=== PATIENT | female | born 1980 | race Caucasian/White ===

== ENCOUNTER → 2017-10-09 08:21 | Outpatient (REF) | payer MEDICAID, SELFPAY ==
[2017-10-09 13:48] LABS: Amphetamine/Metha Screen,Urine Negative ng/mL (<1000); Barbiturates Screen,Urine Negative ng/mL (<200); Benzodiazepines Screen,Urine Negative ng/mL (200); Cannabinoid Screen,Urine Negative ng/mL (<50); Cocaine Screen,Urine Positive ng/g (<300); Methadone Screen,Urine Positive ng/mL (<300); Opiate Screen,Urine Negative ng/mL (<300); Phencyclidine Screen,Urine Negative ng/mL (<25)
[2017-10-09 14:51] LABS: Hemoglobin A1C 5.9 % (0.0-7.0)
== END ==
LOC: LAB 08:21
PROVIDERS: Visit Provider Nurse Practitioner Family
DX: E11.9 Type 2 diabetes mellitus without complications (principal); Z79.899 Other long term (current) drug therapy
CPT/HCPCS: 80305; 83036

== ENCOUNTER → 2018-01-02 16:34 | Outpatient (REF) | payer MEDICAID, SELFPAY ==
[2018-01-02 19:10] LABS: Basophils # 0.1 K/mm3 (0-0.2); Basophils % 0.8 % (0.1-2.0); Eosinophils # 0.3 K/mm3 (0.0-0.4); Eosinophils % 2.4 % (0.1-12.0); Hemoglobin 12.4 g/dL (12.2-16.2); Lymphocytes # 3.9 K/mm3 (0.7-4.5); Mean Corpuscular HGB Conc 31.8 g/dL (31.8-35.4); Mean Corpuscular Hemoglobin 26.7 pg (27.0-31.2); Mean Corpuscular Volume 83.8 fl (81-99); Mean Platelet Volume 8.8 fl (7.4-10.4); Monocytes # 0.6 K/mm3 (0.1-1.0); Monocytes % 5.4 % (1.7-9.3); Neutrophils # 6.6 K/mm3 (1.8-7.8); Neutrophils % 57.5 % (37.0-80.0); Platelet Count 403 K/mm3 (142-424); Red Blood Count 4.65 M/mm3 (4.20-5.40); Red Cell Distribution Width 14.5 % (11.5-17.5); White Blood Count 11.5 K/mm3 (4.8-10.8)
[2018-01-02 19:56] LABS: Alanine Aminotransferase 16 U/L (12-78); Albumin Level 3.3 gm/dL (3.4-5.0); Albumin/Globulin Ratio 0.9 (1.1-1.8); Alkaline Phosphatase 73 U/L (46-116); Anion Gap 16.7 mEq/L (5-15); Aspartate Amino Transferase 19 U/L (15-37); Bilirubin,Total 0.1 mg/dL (0.2-1.0); Blood Urea Nitrogen 12 mg/dL (7-18); Calcium 9.4 mg/dL (8.5-10.1); Carbon Dioxide 22 mmol/L (21.0-32.0); Chloride 104 mmol/L (98-107); Chol/HDL Ratio 3.8 (1-3.5); Cholesterol 204 mg/dL (140-200); Creatinine,Serum 0.89 mg/dL (0.55-1.02); Estimated Glomerular Filt Rate 71 ml/min (>60); GFR (African American) 86 ML/MIN (>60); Globulin 3.8 gm/dl (1.3-3.2); Glucose 127 mg/dL (74-106); HDL Cholesterol 53 mg/dL (29-89); LDL Cholesterol 120 mg/dL (0-130); Potassium 4.7 mmoL/L (3.5-5.1); Sodium 138 mmol/L (136-145); T4 (Thyroxine) 8.1 ug/dl (4.7-13.3); Thyroid Stimulating Hormone 2.25 uIU/ml (0.358-3.740); Total Protein,Serum 7.1 gm/dL (6.4-8.2); Triglycerides 153 mg/dL (30-200); VLDL Cholesterol 31 mg/dL (0-40)
[2018-01-02 20:11] LABS: Hemoglobin A1C 5.8 % (0.0-7.0)
[2018-01-04 12:58] LABS: Vitamin D 25 Hydroxy 18.9 ng/mL (30.0-100.0)
== END ==
LOC: LAB 16:34
PROVIDERS: Visit Provider Emergency Medicine
DX: E11.9 Type 2 diabetes mellitus without complications (principal); E78.5 Hyperlipidemia, unspecified
CPT/HCPCS: 80053; 80061; 82652; 83036; 84436; 84443; 85025

== ENCOUNTER → 2018-03-19 12:03 | Outpatient (REF) | payer MEDICAID, SELFPAY ==
[2018-03-19 13:55] LABS: Basophils # 0.1 K/mm3 (0-0.2); Basophils % 0.8 % (0.1-2.0); Eosinophils # 0.3 K/mm3 (0.0-0.4); Eosinophils % 2.9 % (0.1-12.0); Hematocrit 44.8 % (37.0-47.0); Hemoglobin 13.8 g/dL (12.2-16.2); Lymphocytes # 3.5 K/mm3 (0.7-4.5); Lymphocytes % 38.2 K/mm3 (10-50); Mean Corpuscular HGB Conc 30.9 g/dL (31.8-35.4); Mean Corpuscular Volume 84.3 fl (81-99); Mean Platelet Volume 8.9 fl (7.4-10.4); Monocytes # 0.5 K/mm3 (0.1-1.0); Monocytes % 5.4 % (1.7-9.3); Neutrophils # 4.9 K/mm3 (1.8-7.8); Neutrophils % 52.7 % (37.0-80.0); Platelet Count 422 K/mm3 (142-424); Red Blood Count 5.31 M/mm3 (4.20-5.40); Red Cell Distribution Width 14.7 % (11.5-17.5); White Blood Count 9.2 K/mm3 (4.8-10.8)
[2018-03-19 14:11] LABS: Hemoglobin A1C 5.8 % (0.0-7.0)
[2018-03-19 14:13] LABS: Alanine Aminotransferase 13 U/L (12-78); Albumin Level 3.3 gm/dL (3.4-5.0); Albumin/Globulin Ratio 0.8 (1.1-1.8); Alkaline Phosphatase 75 U/L (46-116); Anion Gap 12.3 mEq/L (5-15); Aspartate Amino Transferase 13 U/L (15-37); Bilirubin,Total 0.3 mg/dL (0.2-1.0); Blood Urea Nitrogen 9 mg/dL (7-18); Calcium 9.1 mg/dL (8.5-10.1); Carbon Dioxide 24 mmol/L (21.0-32.0); Chloride 106 mmol/L (98-107); Chol/HDL Ratio 3.4 (1-3.5); Cholesterol 198 mg/dL (140-200); Creatinine,Serum 0.87 mg/dL (0.55-1.02); Estimated Glomerular Filt Rate 72 ml/min (>60); Free T4 (Free Thyroxine) 0.91 ng/dl (0.76-1.46); GFR (African American) 88 ML/MIN (>60); Glucose 138 mg/dL (74-106); HDL Cholesterol 59 mg/dL (29-89); LDL Cholesterol 117 mg/dL (0-130); Potassium 4.3 mmoL/L (3.5-5.1); Sodium 138 mmol/L (136-145); Total Protein,Serum 7.3 gm/dL (6.4-8.2); Triglycerides 108 mg/dL (30-200); VLDL Cholesterol 22 mg/dL (0-40)
[2018-03-21 06:04] LABS: Vitamin D 25 Hydroxy 28.4 ng/mL (30.0-100.0)
== END ==
LOC: LAB 12:03
PROVIDERS: Visit Provider Emergency Medicine
DX: E11.9 Type 2 diabetes mellitus without complications (principal)
CPT/HCPCS: 80053; 80061; 82652; 83036; 84439; 84443; 85025

== ENCOUNTER → 2018-06-27 09:23 | Outpatient (REF) | payer MEDICAID, SELFPAY ==
[2018-06-27 15:00] LABS: Amphetamine/Metha Screen,Urine Negative ng/mL (<1000); Barbiturates Screen,Urine Negative ng/mL (<200); Benzodiazepines Screen,Urine Negative ng/mL (<200); Cannabinoid Screen,Urine Negative ng/mL (<50); Cocaine Screen,Urine Negative ng/mL (<300); Methadone Screen,Urine Negative ng/mL (<300); Opiate Screen,Urine Negative ng/mL (<300); Phencyclidine Screen,Urine Negative ng/mL (<25)
== END ==
LOC: LAB 09:23
PROVIDERS: PCP Nurse Practitioner Family; Visit Provider Nurse Practitioner Family
DX: Z79.899 Other long term (current) drug therapy (principal)
CPT/HCPCS: 80305

== ENCOUNTER → 2018-09-20 13:58 | Outpatient (CLI) | payer MEDICAID, SELFPAY ==
[2018-09-23 09:25] LABS: Basophils # 0.1 K/mm3 (0-0.2); Basophils % 1.1 % (0.1-2.0); Eosinophils # 0.2 K/mm3 (0.0-0.4); Eosinophils % 2.1 % (0.1-12.0); Hemoglobin 13.2 g/dL (12.2-16.2); Lymphocytes # 3.3 K/mm3 (0.7-4.5); Mean Corpuscular HGB Conc 29.4 g/dL (31.8-35.4); Mean Corpuscular Hemoglobin 26.3 pg (27.0-31.2); Mean Corpuscular Volume 89.6 fl (81-99); Mean Platelet Volume 10.7 fl (7.4-10.4); Monocytes # 0.6 K/mm3 (0.1-1.0); Monocytes % 5.4 % (1.7-9.3); Neutrophils # 6.7 K/mm3 (1.8-7.8); Neutrophils % 61.4 % (37.0-80.0); Platelet Count 377 K/mm3 (142-424); Red Blood Count 5.02 M/mm3 (4.20-5.40); Red Cell Distribution Width 15.2 % (11.5-17.5); White Blood Count 10.9 K/mm3 (4.8-10.8)
[2018-09-23 09:52] LABS: Alanine Aminotransferase 25 U/L (12-78); Albumin Level 3.5 gm/dL (3.4-5.0); Albumin/Globulin Ratio 0.9 (1.1-1.8); Alkaline Phosphatase 87 U/L (46-116); Anion Gap 15.3 mEq/L (5-15); Aspartate Amino Transferase 19 U/L (15-37); Bilirubin,Total 0.3 mg/dL (0.2-1.0); Blood Urea Nitrogen 9 mg/dL (7-18); Calcium 9.1 mg/dL (8.5-10.1); Carbon Dioxide 24 mmol/L (21.0-32.0); Chloride 102 mmol/L (98-107); Chol/HDL Ratio 3.9 (1-3.5); Cholesterol 198 mg/dL (140-200); Creatinine,Serum 0.82 mg/dL (0.55-1.02); Estimated Glomerular Filt Rate 78 ml/min (>60); GFR (African American) 94 ML/MIN (>60); Glucose 105 mg/dL (74-106); HDL Cholesterol 51 mg/dL (29-89); LDL Cholesterol 126 mg/dL (0-130); Potassium 4.3 mmoL/L (3.5-5.1); Sodium 137 mmol/L (136-145); T4 (Thyroxine) 7.5 ug/dl (4.7-13.3); Thyroid Stimulating Hormone 1.34 uIU/ml (0.358-3.740); Total Protein,Serum 7.5 gm/dL (6.4-8.2); Triglycerides 107 mg/dL (30-200); VLDL Cholesterol 21 mg/dL (0-40)
== END ==
PROVIDERS: Visit Provider Emergency Medicine
DX: E11.40 Type 2 diabetes mellitus with diabetic neuropathy, unspecified (principal)
CPT/HCPCS: 80053; 80061; 83036; 84436; 84443; 85025

== ENCOUNTER → 2019-01-13 13:49 | Outpatient (CLI) | payer MEDICAID, SELFPAY ==
[2019-01-13 14:04] LABS: Basophils # 0.1 K/mm3 (0-0.2); Basophils % 0.6 % (0.1-2.0); Eosinophils # 0.2 K/mm3 (0.0-0.4); Eosinophils % 1.9 % (0.1-12.0); Hematocrit 38.7 % (37.0-47.0); Hemoglobin 12.8 g/dL (12.2-16.2); Lymphocytes % 32.5 % (10-50); Mean Corpuscular HGB Conc 33.1 g/dL (31.8-35.4); Mean Corpuscular Hemoglobin 26.7 pg (27.0-31.2); Mean Corpuscular Volume 80.4 fl (81-99); Mean Platelet Volume 7.8 fl (7.4-10.4); Monocytes # 0.5 K/mm3 (0.1-1.0); Monocytes % 4.2 % (1.7-9.3); Neutrophils # 7.4 K/mm3 (1.8-7.8); Neutrophils % 60.7 % (37.0-80.0); Platelet Count 361 K/mm3 (142-424); Red Blood Count 4.81 M/mm3 (4.20-5.40); Red Cell Distribution Width 13.7 % (11.5-17.5); White Blood Count 12.2 K/mm3 (4.8-10.8)
[2019-01-13 15:42] LABS: Anion Gap 14.6 mEq/L (5-15); Blood Urea Nitrogen 9 mg/dL (7-18); Calcium 9.1 mg/dL (8.5-10.1); Carbon Dioxide 24 mmol/L (21.0-32.0); Chloride 103 mmol/L (98-107); Estimated Glomerular Filt Rate 80 ml/min (>60); GFR (African American) 97 ML/MIN (>60); Glucose 87 mg/dL (74-106); Potassium 4.6 mmoL/L (3.5-5.1); Sodium 137 mmol/L (136-145)
== END ==
PROVIDERS: Visit Provider Surgery
DX: L72.9 Follicular cyst of the skin and subcutaneous tissue, unspecified (principal)
CPT/HCPCS: 36415; 80048; 85025

== ENCOUNTER 2019-02-07 08:12 | Day surgery (SDC) | payer MEDICAID, SELFPAY ==
[2019-02-05 15:15] VITALS: BMI 45.1
[2019-02-07 08:32] VITALS: BP 104/49; PULSE 65; RESP 18; TEMP 36.4; O2SAT 97
[2019-02-07 09:01] LABS: POC Glucose,Bedside 115 (70-110)
--- NOTE | 2019-02-07 09:41 | HMH.OPNOTE ---
Date of procedure: 02/07/19 Pre-op Diagnosis:: 1 cm cyst along right hand Post-op Diagnosis:: Same Procedure performed:: Excision of 1 cm cyst from right hand Surgeon:: Florentin Aguirre MD Semiautomatic Stitcher Operator(s):: Dino ELECTRICAL PROSPECTING ENGINEER:: Ranulfo Bazan Anesthesia: MAC, local Estimated blood loss (mL): 5 Operative findings:: Shallow lesion within dermal/subdermal tissue No definitive evidence of ganglion Operative note:: After informed consent was obtained the patient was taken the operating room and placed in the supine position. Monitored anesthesia care ensued and her right hand was prepped and draped in sterile fashion. After infiltration local anesthetic an elliptical incision was made around the lesion. The deep subcutaneous tissue was sharply dissected with scalpel and the entire lesion was excised in toto and passed off for pathologic evaluation. The lesion appeared to be essentially within the dermal/subdermal tissue with no evidence of ganglion cyst or deeper cyst. Electrocautery was utilized to achieve hemostasis and skin was closed with 4-0 nylon in an interrupted fashion. Dressings were applied and the patient was transferred to recovery in stable condition. Condition: stable Disposition: PACU Specimens:: Right hand cyst Complications:: No immediate
--- NOTE | 2019-02-07 09:44 | P.OP_ITS ---
Date of procedure: 02/07/19 Pre-op Diagnosis:: 1 cm cyst along right hand Post-op Diagnosis:: Same Procedure performed:: Excision of 1 cm cyst from right hand Surgeon:: Florentin Aguirre MD Sales Assistant Displays(s):: Dino MEDICAL DELIVERY DRIVER:: Raunlfo Bazan Anesthesia: MAC, local Estimated blood loss (mL): 5 Operative findings:: Shallow lesion within dermal/subdermal tissue No definitive evidence of ganglion Operative note:: After informed consent was obtained the patient was taken the operating room and placed in the supine position. Monitored anesthesia care ensued and her right hand was prepped and draped in sterile fashion. After infiltration local anesthetic an elliptical incision was made around the lesion. The deep subcutaneous tissue was sharply dissected with scalpel and the entire lesion was excised in toto and passed off for pathologic evaluation. The lesion appeared to be essentially within the dermal/subdermal tissue with no evidence of ganglion cyst or deeper cyst. Electrocautery was utilized to achieve hemostasis and skin was closed with 4-0 nylon in an interrupted fashion. Dressings were applied and the patient was transferred to recovery in stable condition. Condition: stable Disposition: PACU Specimens:: Right hand cyst Complications:: No immediate
[2019-02-07 09:45] VITALS: BP 92/47; PULSE 75; RESP 18; TEMP 36.2; O2SAT 95
[2019-02-07 10:00] VITALS: BP 106/59; PULSE 69; RESP 18; TEMP 36.2; O2SAT 96
[2019-02-07 10:15] VITALS: BP 109/56; PULSE 72; RESP 18; TEMP 36.2; O2SAT 95
[2019-02-07 10:30] VITALS: BP 99/56; PULSE 74; RESP 18; TEMP 36.2; O2SAT 95
--- NOTE | 2019-02-07 14:15 | HMH.ANESCL ---
[facility] Anesthesia Checklist - Structural Data Admitted From: Home Planned Operative Procedure/s: excision cyst r hand Consent for Planned Operative Procedure(s) Verified: Yes - Airway Assessment C-Spine Mobility Assessed: Yes TMJ Mobility Assessed: Yes Dentition: Edentulous - Neurological Assessment Level of Consciousness: Awake, Alert, Appropriate - Anesthesia Plan Anesthesia Risk discussed: Yes Anesthesia Plan: Verified ASA Class: II Anesthesia Type: MAC [facility] History I have reviewed the patient's past medical history: Yes Medical History: Reports:: Diabetes Mellitus Type 1, Diabetes Mellitus Type 2, Hyperlipidemia, Hypertension Denies:: Cancer, Internal Pacemaker, MRSA, Seizures *Have you ever received a pneumonia vaccine?: No *Have you received a flu vaccine this season?: Yes Other Medical History: Denies: Blood Transfusion Reaction Other Surgeries: Yes: , Hysterectomy-Total, Other. No: Pacemaker Amputation: No Fractures: No - *Social History Educational Level: Completed High School Smoking Status: Current every day smoker Tobacco Type: cigarettes # Packs/Day (cigarettes): 1 Alcohol Intake: never Substance Use Type: former substance user, crack/cocaine Last Used Substance: days (ago) *Occupational Status:: unemployed Housing: house Household Members: family *Travel in the last 8 weeks: None - Psychiatric History Expresses thoughts of harming self/others: None Suicide Plan Description: No Plan Family Hx:: Diabetes, Heart Attack, Kidney Disease
== END 2019-02-07 10:30 | disposition home or self-care (01) ==
LOC: OR 08:13
PROVIDERS: PCP Emergency Medicine; Visit Provider Surgery
PROC: (CPT 11421; principal; 2019-02-07 09:45)
DX: L72.3 Sebaceous cyst (principal)
CPT/HCPCS: 11421; 82962; 96374

== ENCOUNTER → 2019-05-15 13:58 | Outpatient (CLI) | payer MEDICAID, SELFPAY ==
--- NOTE | 2019-05-15 14:04 | XR_ITS ---
PROCEDURE: XR KNEE RT 4V CLINICAL INDICATION: knee pain COMPARISON: No exams were available for comparison FINDINGS: No fracture or dislocation. No lytic or blastic change. There is normal mineralization. Mild osteoarthritic changes are present involving the lateral compartment with slight decrease in the joint space laterally. Other findings:None. IMPRESSION: Mild osteoarthritis lateral compartment Dictated by: Andrews Rodriges MD 05/15/2019 16:43 Electronically signed by Andrews Rodriges MD in [place] 05/15/2019 16:43
== END ==
PROVIDERS: PCP Emergency Medicine; Visit Provider Orthopaedic Surgery
DX: M25.561 Pain in right knee (principal)
CPT/HCPCS: 73564

== ENCOUNTER → 2019-07-01 14:13 | Outpatient (CLI) | payer MEDICAID, SELFPAY ==
--- NOTE | 2019-07-01 14:16 | XR_ITS ---
PROCEDURE: XR HAND RT MIN 3V CLINICAL INDICATION: pain Third digit pain COMPARISON: No exams were available for comparison FINDINGS: Comminuted fracture involves the tuft of the distal phalanx of the 3rd finger without significant displacement. The joint spaces are well-preserved. No significant degenerative/arthritic changes. No erosive changes evident. Other findings:None. IMPRESSION: Nondisplaced comminuted fracture tuft distal phalanx 3rd finger Dictated by: Andrews Rodriges MD 07/01/2019 15:54 Electronically signed by Andrews Rodriges MD in [place] 07/01/2019 15:54
== END ==
PROVIDERS: PCP Emergency Medicine; Visit Provider Nurse Practitioner Family
DX: M79.641 Pain in right hand (principal)
CPT/HCPCS: 73130

== ENCOUNTER → 2019-07-21 17:13 | Outpatient (CLI) | payer OTHER, SELFPAY ==
[2019-07-21 17:50] LABS: Basophils # 0.1 K/mm3 (0-0.2); Basophils % 0.7 % (0.1-2.0); Eosinophils # 0.3 K/mm3 (0.0-0.4); Eosinophils % 2.6 % (0.1-12.0); Hematocrit 43.4 % (37.0-47.0); Hemoglobin 13.5 g/dL (12.2-16.2); Lymphocytes # 3.5 K/mm3 (0.7-4.5); Lymphocytes % 28.7 % (10-50); Mean Corpuscular HGB Conc 31.1 g/dL (31.8-35.4); Mean Corpuscular Hemoglobin 27.2 pg (27.0-31.2); Mean Corpuscular Volume 87.3 fl (81-99); Mean Platelet Volume 8.9 fl (7.4-10.4); Monocytes # 0.7 K/mm3 (0.1-1.0); Monocytes % 5.3 % (1.7-9.3); Neutrophils # 7.7 K/mm3 (1.8-7.8); Neutrophils % 62.7 % (37.0-80.0); Platelet Count 383 K/mm3 (142-424); Red Blood Count 4.97 M/mm3 (4.20-5.40); Red Cell Distribution Width 13.8 % (11.5-17.5); White Blood Count 12.3 K/mm3 (4.8-10.8)
[2019-07-21 18:34] LABS: Alanine Aminotransferase 34 U/L (12-78); Albumin Level 3.4 gm/dL (3.4-5.0); Albumin/Globulin Ratio 0.8 (1.1-1.8); Alkaline Phosphatase 73 U/L (46-116); Anion Gap 11.5 mEq/L (5-15); Aspartate Amino Transferase 28 U/L (15-37); Bilirubin,Total 0.3 mg/dL (0.2-1.0); Blood Urea Nitrogen 13 mg/dL (7-18); Calcium 9.1 mg/dL (8.5-10.1); Carbon Dioxide 27 mmol/L (21.0-32.0); Chloride 100 mmol/L (98-107); Chol/HDL Ratio 3.9 (1-3.5); Cholesterol 189 mg/dL (140-200); Estimated Glomerular Filt Rate 69 ml/min (>60); GFR (African American) 84 ML/MIN (>60); Globulin 4.1 gm/dl (1.3-3.2); Glucose 160 mg/dL (74-106); HDL Cholesterol 48 mg/dL (29-89); LDL Cholesterol 118 mg/dL (0-130); Potassium 4.5 mmoL/L (3.5-5.1); Sodium 134 mmol/L (136-145); T4 (Thyroxine) 8.4 ug/dl (4.7-13.3); Thyroid Stimulating Hormone 2.26 uIU/ml (0.358-3.740); Total Protein,Serum 7.5 gm/dL (6.4-8.2); Triglycerides 114 mg/dL (30-200); VLDL Cholesterol 23 mg/dL (0-40)
[2019-07-21 18:56] LABS: Hemoglobin A1C 6.8 % (0.0-7.0)
[2019-07-23 12:20] LABS: Vitamin D 25 Hydroxy 37.5 ng/mL (30.0-100.0)
[2019-07-23 12:21] LABS: Microalbumin, Urine <3.0 ug/mL (Not Estab.)
== END ==
PROVIDERS: Visit Provider Emergency Medicine
DX: E11.9 Type 2 diabetes mellitus without complications (principal); G62.9 Polyneuropathy, unspecified; Z79.84 Long term (current) use of oral hypoglycemic drugs
CPT/HCPCS: 80053; 80061; 82043; 82570; 82652; 83036; 84436; 84443; 85025

== ENCOUNTER → 2020-02-16 14:34 | Outpatient (CLI) | payer OTHER, SELFPAY ==
[2020-02-16 15:30] LABS: Basophils % 0.3 % (0.1-2.0); Eosinophils # 0.4 K/mm3 (0.0-0.4); Eosinophils % 2.9 % (0.1-12.0); Hematocrit 40.3 % (37.0-47.0); Hemoglobin 13.4 g/dL (12.2-16.2); Lymphocytes # 2.6 K/mm3 (0.7-4.5); Lymphocytes % 21.5 % (10-50); Mean Corpuscular HGB Conc 33.2 g/dL (31.8-35.4); Mean Corpuscular Hemoglobin 28.2 pg (27.0-31.2); Mean Corpuscular Volume 84.9 fl (81-99); Monocytes # 0.5 K/mm3 (0.1-1.0); Monocytes % 4.2 % (1.7-9.3); Neutrophils # 8.8 K/mm3 (1.8-7.8); Neutrophils % 71.2 % (37.0-80.0); Platelet Count 358 K/mm3 (142-424); Red Blood Count 4.75 M/mm3 (4.20-5.40); Red Cell Distribution Width 14.3 % (11.5-17.5); White Blood Count 12.3 K/mm3 (4.8-10.8)
[2020-02-16 15:52] LABS: Chloride 103 mmol/L (98-107); Potassium 4.6 mmoL/L (3.5-5.1); Sodium 137 mmol/L (136-145)
[2020-02-16 15:55] LABS: Albumin Level 3.9 g/dl (3.5-5.0); Albumin/Globulin Ratio 1.1 (1.1-1.8); Alkaline Phosphatase 83 U/L (38-126); Anion Gap 10.6 mEq/L (5-15); Bilirubin,Total 0.5 mg/dl (0.2-1.3); Blood Urea Nitrogen 9 mg/dl (7-17); Calcium 9.8 mg/dl (8.4-10.2); Carbon Dioxide 28 mmol/L (22.0-30.0); Estimated Glomerular Filt Rate 92 ml/min (>60); GFR (African American) 112 ML/MIN (>60); Globulin 3.5 g/dL (1.3-3.2); Glucose 156 mg/dl (74-100); Total Protein,Serum 7.4 g/dl (6.3-8.2)
[2020-02-16 15:57] LABS: Alanine Aminotransferase 32 U/L (12-78); Aspartate Amino Transferase 44 U/L (14-36)
[2020-02-18 07:13] LABS: Hep A Ab, IgM Negative (Negative); Hep A Ab, Total Negative (Negative); Hep B Core Ab, Total Positive (Negative)
[2020-02-18 09:40] LABS: HIV Screen 4th Generation wRfx Non Reactive (Non Reactive); Hep B Surface Ab, Qual Reactive (.); Hepatitis B Surface Antigen Negative (Negative)
[2020-02-18 12:10] LABS: Creatinine, Urine 85.4 mg/dL (Not Estab.); Microalbumin, Urine <3.0 ug/mL (Not Estab.)
[2020-02-19 18:10] LABS: HBV IU/mL HBV DNA not detected IU/mL (.)
== END ==
PROVIDERS: Visit Provider Emergency Medicine
DX: B19.10 Unspecified viral hepatitis B without hepatic coma (principal); E11.9 Type 2 diabetes mellitus without complications; Z79.84 Long term (current) use of oral hypoglycemic drugs
CPT/HCPCS: 80053; 82043; 82570; 85025; 86703; 86704; 86706; 86708; 87340; 87517; 87522; G0432

== ENCOUNTER → 2020-11-23 13:46 | Outpatient (CLI) | payer OTHER, SELFPAY ==
[2020-11-23 14:24] LABS: Alanine Aminotransferase 30 U/L (12-78); Albumin Level 3.9 g/dl (3.5-5.0); Albumin/Globulin Ratio 1.1 (1.1-1.8); Alkaline Phosphatase 79 U/L (38-126); Aspartate Amino Transferase 37 U/L (14-36); Bilirubin,Total 0.5 mg/dl (0.2-1.3); Blood Urea Nitrogen 9 mg/dl (7-17); Calcium 9.8 mg/dl (8.4-10.2); Carbon Dioxide 27 mmol/L (22.0-30.0); Chol/HDL Ratio 3.6 (1-3.5); Cholesterol 206 mg/dl (140-200); Estimated Glomerular Filt Rate 92 ml/min (>60); GFR (African American) 112 ML/MIN (>60); Globulin 3.5 g/dL (1.3-3.2); Glucose 136 mg/dl (74-100); HDL Cholesterol 58 mg/dl (40-60); Total Protein,Serum 7.4 g/dl (6.3-8.2); Triglycerides 114 mg/dl (30-150); VLDL Cholesterol 23 mg/dL (0-40)
[2020-11-23 14:34] LABS: 25-OH Vitamin D, Total 32.5 ng/mL (30-100)
[2020-11-23 14:36] LABS: Direct LDL Cholesterol 125.09 mg/dL (100-129)
[2020-11-23 14:39] LABS: Anion Gap 12.6 mEq/L (5-15); Chloride 103 mmol/L (98-107); Potassium 4.6 mmoL/L (3.5-5.1); Sodium 138 mmol/L (136-145)
[2020-11-23 14:58] LABS: Basophils # 0.1 K/mm3 (0-0.2); Basophils % 0.8 % (0.1-2.0); Eosinophils # 0.4 K/mm3 (0.0-0.4); Eosinophils % 3.3 % (0.1-12.0); Hematocrit 42.2 % (37.0-47.0); Hemoglobin 13.7 g/dL (12.2-16.2); Lymphocytes # 3.7 K/mm3 (0.7-4.5); Lymphocytes % 31.2 % (10-50); Mean Corpuscular HGB Conc 32.4 g/dL (31.8-35.4); Mean Corpuscular Hemoglobin 28.3 pg (27.0-31.2); Mean Corpuscular Volume 87.4 fl (81-99); Mean Platelet Volume 8.7 fl (7.4-10.4); Monocytes # 0.7 K/mm3 (0.1-1.0); Monocytes % 5.6 % (1.7-9.3); Neutrophils # 7.1 K/mm3 (1.8-7.8); Neutrophils % 59.1 % (37.0-80.0); Platelet Count 418 K/mm3 (142-424); Red Blood Count 4.83 M/mm3 (4.20-5.40); Red Cell Distribution Width 14.2 % (11.5-17.5); White Blood Count 11.9 K/mm3 (4.8-10.8)
[2020-11-23 16:04] LABS: Hemoglobin A1C 7.5 % (4.0-6.0)
== END ==
PROVIDERS: Visit Provider Nurse Practitioner Family
DX: E11.9 Type 2 diabetes mellitus without complications (principal); E55.9 Vitamin D deficiency, unspecified; Z79.84 Long term (current) use of oral hypoglycemic drugs
CPT/HCPCS: 80053; 80061; 82306; 83036; 84436; 84443; 85025

== ENCOUNTER → 2021-05-23 18:50 | Outpatient (CLI) | payer OTHER, SELFPAY ==
[2021-05-23 19:40] LABS: Amphetamine/Metha Screen,Urine Negative ng/ml (<1000)
[2021-05-23 19:41] LABS: Barbiturates Screen,Urine Negative ng/ml (<200)
[2021-05-23 19:42] LABS: Benzodiazepines Screen,Urine Negative ng/ml (<200); Cannabinoid Screen,Urine Negative ng/ml (<50)
[2021-05-23 19:43] LABS: Cocaine Screen,Urine Negative ng/ml (<300)
[2021-05-23 19:44] LABS: Methadone Screen,Urine Negative ng/ml (<300); Opiate Screen,Urine Negative ng/ml (<300)
[2021-05-23 19:45] LABS: Phencyclidine Screen,Urine Negative ng/ml (<25)
== END ==
PROVIDERS: Visit Provider Nurse Practitioner Family
DX: G62.9 Polyneuropathy, unspecified (principal)
CPT/HCPCS: 80305

== ENCOUNTER 2021-07-12 14:05 | Emergency (ER) | payer OTHER, SELFPAY ==
[2021-07-12 14:06] VITALS: BP 156/76; PULSE 67; RESP 16; TEMP 36.7; O2SAT 98
[2021-07-12 15:37] VITALS: PULSE 66; RESP 18; TEMP 36.6; O2SAT 98; BMI 45.1
--- NOTE | 2021-07-12 15:42 | HMH.EDUTC ---
[facility] [place] Clinical Impression: Left wrist tendinitis Disposition: Home, Self-Care Condition on Discharge: Good Instructions: DI for Tendinitis Additional Instructions: Rest the extremity, Elevate the extremity as tolerated while you are resting. Wear the wrist splint and rest your hand and wrist as much time as possible for the next few days. Take ibuprofen for pain. I sent in a prescription to your pharmacy. Follow up with your orthopedic physician that you have an appointment with already Follow up with your regular doctor. GO TO THE ER FOR ANY WORSENING SYMPTOMS Prescriptions: Ibuprofen [Ibuprofen 800mg Tablet] 800 mg PO Q8HP PRN #30 tab PRN Reason: Moderate Pain Transmission Status: Received by [facility] Referrals: Cecilio Gibbs MD [Primary Care Provider] - Forms: Work/School Release Time of Disposition: 15:51 Medical Decision Making - Medical Records Medical records reviewed: No: I reviewed the patient's medical records. - Rivas Inquiry Pt receiving controlled substance: No Vital Signs: 07/12/21 14:06 07/12/21 15:37 07/12/21 16:11 Temperature 98.1 F 97.9 F 97.9 F Temperature Source Oral Oral Pulse Rate 66 Pulse Rate [Right Radial] 67 66 Respiratory Rate 16 18 16 Blood Pressure 135/76 Blood Pressure [Right Arm] 156/76 H Blood Pressure Mean [Right Arm] 102 Blood Pressure Source [Right Arm] Automatic Cuff Blood Pressure Position [Right Arm] Sitting 02 Sat by Pulse Oximetry 98 98 Oxygen Delivery Method Room Air Orders (Tests/Meds): ED MEDICATIONS Discontinued Medications Generic Name Dose Route Start Last Admin Trade Name Freq PRN Reason Stop Dose Admin Ketorolac Tromethamine 60 mg 07/12/21 15:47 07/12/21 15:53 Ketorolac 60mg/2ml Vial IM 07/12/21 15:48 60 mg ONCE ONE Administration [facility] [place] - General Stated complaint: right wrist pain and burning , no accident Time Seen by Provider: 07/12/21 15:42 Mode of Arrival: Ambulatory Source of Information: Patient Limitations: No Limitations Description of Symptoms (Recalled from Triage Doc. by RN): pt c/o burning in her R wrist. pt states this has been ongoing over a month. she say Dr. [place] a month ago and her xray was negative. however, the pain keeps getting worse. HEENT Symptoms (Recalled from RN notes): No Resp Symptoms (Recalled from RN notes): No Skin Symptoms (Recalled from RN notes): No MS Symptoms (Recalled from RN notes): Yes (R wrist burning pain) Functional Status (Recalled from RN notes): na - History of Present Illness Provider Complaint: She states that she has had right wrist pain for the past 3 weeks. She has had it x-rayed by her pcp and the x-ray did not show anything wrong. She has an appointment with orthopedics, but today it started hurting more so she came in to be rechecked. She denies any known injury. - Related Data Home Medications Medication Instructions Recorded Confirmed buprenorphine 8 mg-naloxone 2 mg 1 tab SUBLINGUAL BID tab 03/19/18 04/01/21 sublingual tablet doxepin 25 mg capsule 25 mg PO HS 09/15/20 04/01/21 buspirone 10 mg tablet 10 mg PO TID tab 12/06/20 04/01/21 sertraline 50 mg tablet 50 mg PO DAILY 02/25/21 04/01/21 Previous Rx's Medication Instructions Recorded fluticasone propionate 50 See Rx Instructions .ROUTE 01/22/20 mcg/actuation nasal .COMPLEX #16 g spray,suspension omeprazole 40 mg capsule,delayed See Rx Instructions .ROUTE 04/13/20 release .COMPLEX #180 cap ergocalciferol (vitamin D2) 1,250 50,000 unit PO QWEEK #14 cap 07/05/20 mcg (50,000 unit) capsule cholecalciferol (vitamin D3) 25 See Rx Instructions .ROUTE 08/31/20 mcg (1,000 unit) capsule .COMPLEX #90 each estradiol 2 mg tablet 2 mg PO DAILY #90 tab 08/31/20 glipizide 5 mg tablet 5 mg PO BID 90 Days #180 tab 08/31/20 loratadine 10 mg tablet 10 mg PO DAILY #90 tab 08/31/20 metformin 1,000 mg tablet 1,000 mg PO BID #180 tab 08/31
[2021-07-12 16:11] VITALS: BP 135/76; PULSE 66; RESP 16; TEMP 36.6
== END 2021-07-12 16:12 | disposition home or self-care (01) ==
LOC: ER 14:17 → UTC 14:17
PROVIDERS: Emergency Provider Nurse Practitioner Family; PCP Emergency Medicine
DX: M77.21 Periarthritis, right wrist (principal)
CPT/HCPCS: 29125; 96372; 99202; G0463

== ENCOUNTER → 2021-08-01 14:44 | Outpatient (CLI) | payer OTHER, SELFPAY ==
[2021-08-01 15:16] LABS: Coronavirus 19, PCR Not Detected (NotDetected); Influenza A, PCR Not Detected (NotDetected); Influenza B, PCR Not Detected (NotDetected)
== END ==
PROVIDERS: Visit Provider Emergency Medicine
DX: Z20.822 Contact with and (suspected) exposure to COVID-19 (principal); R05.9 Cough, unspecified
CPT/HCPCS: C9803; U0003; U0005

== ENCOUNTER → 2022-06-16 09:11 | Outpatient (CLI) | payer OTHER, SELFPAY ==
[2022-06-16 18:44] LABS: Basophils # 0.1 K/mm3 (0-0.2); Eosinophils # 0.3 K/mm3 (0.0-0.4); Eosinophils % 3.2 % (0.1-12.0); Hematocrit 43.4 % (37.0-47.0); Hemoglobin 13.8 g/dL (12.2-16.2); Lymphocytes # 2.4 K/mm3 (0.7-4.5); Lymphocytes % 31.1 % (10-50); Mean Corpuscular HGB Conc 31.8 g/dL (31.8-35.4); Mean Corpuscular Hemoglobin 28.9 pg (27.0-31.2); Mean Platelet Volume 9.8 fl (7.4-10.4); Monocytes # 0.6 K/mm3 (0.1-1.0); Monocytes % 7.3 % (1.7-9.3); Neutrophils # 4.5 K/mm3 (1.8-7.8); Neutrophils % 57.5 % (37.0-80.0); Platelet Count 351 K/mm3 (142-424); Red Blood Count 4.77 M/mm3 (4.20-5.40); Red Cell Distribution Width 13.6 % (11.5-17.5); White Blood Count 7.8 K/mm3 (4.8-10.8)
[2022-06-16 19:41] LABS: Alanine Aminotransferase 20 U/L (12-78); Albumin Level 3.8 g/dl (3.5-5.0); Albumin/Globulin Ratio 1.2 (1.1-1.8); Alkaline Phosphatase 108 U/L (38-126); Anion Gap 16.5 mEq/L (5-15); Aspartate Amino Transferase 27 U/L (14-36); Blood Urea Nitrogen 8 mg/dl (7-17); Calcium 9.1 mg/dl (8.4-10.2); Carbon Dioxide 27 mmol/L (22.0-30.0); Chloride 100 mmol/L (98-107); Chol/HDL Ratio 4.1 (1-3.5); Cholesterol 211 mg/dl (140-200); Estimated Glomerular Filt Rate 109 ml/min (>60); GFR (African American) 132 ML/MIN (>60); Globulin 3.1 g/dL (1.3-3.2); Glucose 127 mg/dl (74-100); HDL Cholesterol 51 mg/dl (40-60); Potassium 4.5 mmoL/L (3.5-5.1); Sodium 139 mmol/L (136-145); Total Protein,Serum 6.9 g/dl (6.3-8.2); Triglycerides 170 mg/dl (30-150); VLDL Cholesterol 34 mg/dL (0-40)
[2022-06-16 19:42] LABS: Bilirubin,Total < 0.1 mg/dl (0.2-1.3)
[2022-06-16 19:56] LABS: Direct LDL Cholesterol 129.32 mg/dL (100-129)
[2022-06-16 19:58] LABS: Free T4 (Free Thyroxine) 1.03 ng/dl (0.78-2.19)
[2022-06-16 20:12] LABS: Thyroid Stimulating Hormone 1.89 uIU/mL (0.465-4.68)
[2022-06-16 20:25] LABS: Creatinine,Urine Random 40 mg/dL (Not Estab.); Microalbumin < 6.000 mg/L (0-16.7)
== END ==
PROVIDERS: PCP Emergency Medicine; Visit Provider Emergency Medicine
DX: E11.40 Type 2 diabetes mellitus with diabetic neuropathy, unspecified (principal); E66.09 Other obesity due to excess calories; Z68.41 Body mass index [BMI] 40.0-44.9, adult; Z79.84 Long term (current) use of oral hypoglycemic drugs
CPT/HCPCS: 80053; 80061; 82043; 82570; 83036; 84439; 84443; 85025

== ENCOUNTER → 2022-07-21 11:50 | Outpatient (CLI) | payer OTHER, SELFPAY ==
[2022-07-21 14:20] LABS: Adenovirus,PCR Not Detected (NotDetected); Bordetella Pertussis Not Detected (NotDetected); Chlamydophila Pneumoniae, PCR Not Detected (NotDetected); Coronavirus 19, PCR Not Detected (NotDetected); Coronavirus 229E Not Detected (NotDetected); Coronavirus NL63 Not Detected (NotDetected); Coronavirus OC43 Not Detected (NotDetected); Coronovirus HKU1,PCR Not Detected (NotDetected); Human Metapneumovirus Not Detected (NotDetected); Influenza A, PCR Not Detected (NotDetected); Influenza AH1, 2009 Not Detected (NotDetected); Influenza AH1, PCR Not Detected (NotDetected); Influenza AH3,PCR Not Detected (NotDetected); Influenza B, PCR Not Detected (NotDetected); Mycoplasma Pneumoniae, PCR Not Detected (NotDetected); Parainfluenza 1, PCR Not Detected (NotDetected); Parainfluenza 2, PCR Not Detected (NotDetected); Parainfluenza 3, PCR Not Detected (NotDetected); Parainfluenza 4, PCR Not Detected (NotDetected); Respiratory Syncytial Virus Not Detected (NotDetected); Rhinovirus/Enterovirus Not Detected (NotDetected)
== END ==
PROVIDERS: PCP Nurse Practitioner Family; Visit Provider Nurse Practitioner Family
DX: R06.09 Other forms of dyspnea (principal); R09.81 Nasal congestion
CPT/HCPCS: 87581; 87632; 87798; C9803; U0003; U0005

== ENCOUNTER → 2022-10-24 23:18 | Outpatient (CLI) | payer OTHER, SELFPAY | PROVIDERS: PCP Student in an Organized Health Care Education/Training Program; Visit Provider Student in an Organized Health Care Education/Training Program | DX: R05.9 Cough, unspecified (principal) | CPT/HCPCS: C9803; U0003; U0005 ==

== ENCOUNTER → 2023-03-08 14:20 | Outpatient (CLI) | payer OTHER, SELFPAY ==
[2023-03-08 18:25] LABS: Creatinine,Urine Random 100 mg/dL (Not Estab.)
[2023-03-08 18:31] LABS: Microalbumin < 6.000 mg/L (0-16.7)
[2023-03-08 18:42] LABS: Basophils % 0.3 % (0.1-2.0); Eosinophils # 0.5 K/mm3 (0.0-0.4); Eosinophils % 4.5 % (0.1-12.0); Lymphocytes % 29.2 % (10-50); Mean Corpuscular HGB Conc 31.8 g/dL (31.8-35.4); Mean Corpuscular Hemoglobin 28.5 pg (27.0-31.2); Mean Corpuscular Volume 89.5 fl (81-99); Mean Platelet Volume 9.7 fl (7.4-10.4); Monocytes # 0.6 K/mm3 (0.1-1.0); Monocytes % 6.1 % (1.7-9.3); Neutrophils # 6.2 K/mm3 (1.8-7.8); Neutrophils % 59.9 % (37.0-80.0); Platelet Count 315 K/mm3 (142-424); Red Blood Count 4.91 M/mm3 (4.20-5.40); Red Cell Distribution Width 13.2 % (11.5-17.5); White Blood Count 10.3 K/mm3 (4.8-10.8)
[2023-03-08 18:48] LABS: Alanine Aminotransferase 19 U/L (12-78); Albumin Level 4.1 g/dl (3.5-5.0); Albumin/Globulin Ratio 1.3 (1.1-1.8); Alkaline Phosphatase 91 U/L (38-126); Anion Gap 17.7 mEq/L (5-15); Aspartate Amino Transferase 26 U/L (14-36); Bilirubin,Total 0.1 mg/dl (0.2-1.3); Blood Urea Nitrogen 7 mg/dl (7-17); Carbon Dioxide 26 mmol/L (22.0-30.0); Chloride 101 mmol/L (98-107); Cholesterol 201 mg/dl (140-200); Estimated Glomerular Filt Rate 109 ml/min (>60); GFR (African American) 131 ML/MIN (>60); Globulin 3.2 g/dL (1.3-3.2); Glucose 69 mg/dl (74-100); HDL Cholesterol 50 mg/dl (40-60); Potassium 4.7 mmoL/L (3.5-5.1); Sodium 140 mmol/L (136-145); Total Protein,Serum 7.3 g/dl (6.3-8.2); Triglycerides 152 mg/dl (30-150); VLDL Cholesterol 30 mg/dL (0-40)
[2023-03-08 18:59] LABS: Direct LDL Cholesterol 108.87 mg/dL (100-129)
[2023-03-08 19:05] LABS: 25-OH Vitamin D, Total 42.3 ng/mL (30-100)
[2023-03-08 19:18] LABS: Thyroid Stimulating Hormone 1.48 uIU/mL (0.465-4.68)
[2023-03-12 09:40] LABS: Hemoglobin A1C 6.3 % (4.0-6.0)
== END ==
PROVIDERS: PCP Nurse Practitioner Family; Visit Provider Nurse Practitioner Family
DX: E11.9 Type 2 diabetes mellitus without complications (principal); E66.9 Obesity, unspecified; Z68.41 Body mass index [BMI] 40.0-44.9, adult; Z79.899 Other long term (current) drug therapy; Z79.84 Long term (current) use of oral hypoglycemic drugs; F17.210 Nicotine dependence, cigarettes, uncomplicated
CPT/HCPCS: 80053; 80061; 82043; 82306; 82570; 83036; 84443; 85025

== ENCOUNTER 2023-10-03 21:55 | Outpatient (CLI) | payer SELFPAY ==
[2023-10-04 00:24] LABS: Amphetamine/Metha Screen,Urine Negative ng/ml (<1000)
[2023-10-04 00:25] LABS: Barbiturates Screen,Urine Negative ng/ml (<200)
[2023-10-04 00:26] LABS: Benzodiazepines Screen,Urine Negative ng/ml (<200); Cannabinoid Screen,Urine Negative ng/ml (<50)
[2023-10-04 00:27] LABS: Cocaine Screen,Urine Negative ng/ml (<300)
[2023-10-04 00:28] LABS: Methadone Screen,Urine Negative ng/ml (<300); Opiate Screen,Urine Negative ng/ml (<300)
[2023-10-04 00:29] LABS: Phencyclidine Screen,Urine Negative ng/ml (<25)
[2023-10-11 09:22] LABS: Gabapentin,Urine >800.0 ug/mL (.)
== END 2023-10-03 23:59 ==
LOC: LAB.DROPOF 21:55
PROVIDERS: PCP Nurse Practitioner Family; Visit Provider Nurse Practitioner Family
DX: E11.319 Type 2 diabetes mellitus with unspecified diabetic retinopathy without macular edema (principal); E11.40 Type 2 diabetes mellitus with diabetic neuropathy, unspecified; Z79.84 Long term (current) use of oral hypoglycemic drugs; Z79.899 Other long term (current) drug therapy
CPT/HCPCS: 80307

== ENCOUNTER 2024-03-21 10:00 | Outpatient (CLI) | payer OTHER, SELFPAY ==
[2024-03-20 18:12] LABS: Basophils # 0.1 K/mm3 (0-0.2); Basophils % 0.7 % (0.1-2.0); Eosinophils # 0.2 K/mm3 (0.0-0.4); Eosinophils % 2.4 % (0.1-12.0); Hematocrit 42.3 % (37.0-47.0); Hemoglobin 14.1 g/dL (12.2-16.2); Lymphocytes # 3.5 K/mm3 (0.7-4.5); Lymphocytes % 36.2 % (10-50); Mean Corpuscular HGB Conc 33.4 g/dL (31.8-35.4); Mean Corpuscular Hemoglobin 29.8 pg (27.0-31.2); Mean Corpuscular Volume 89.1 fl (81-99); Mean Platelet Volume 10.4 fl (7.4-10.4); Monocytes # 0.4 K/mm3 (0.1-1.0); Monocytes % 4.5 % (1.7-9.3); Neutrophils # 5.4 K/mm3 (1.8-7.8); Neutrophils % 56.2 % (37.0-80.0); Platelet Count 247 K/mm3 (142-424); Red Blood Count 4.74 M/mm3 (4.20-5.40); Red Cell Distribution Width 13.7 % (11.5-17.5); White Blood Count 9.7 K/mm3 (4.8-10.8)
[2024-03-20 18:51] LABS: Chloride 106 mmol/L (98-107); Potassium 4.1 mmoL/L (3.5-5.1); Sodium 137 mmol/L (136-145)
[2024-03-20 18:53] LABS: Alanine Aminotransferase 25 U/L (12-78); Anion Gap 9.1 mEq/L (5-15); Aspartate Amino Transferase 33 U/L (14-36); Blood Urea Nitrogen 8 mg/dl (7-17); Carbon Dioxide 26 mmol/L (22.0-30.0); Estimated Glomerular Filt Rate 90 ml/min (>60); GFR (African American) 109 ML/MIN (>60)
[2024-03-20 18:54] LABS: Albumin Level 3.8 g/dl (3.5-5.0); Albumin/Globulin Ratio 1.1 (1.1-1.8); Alkaline Phosphatase 126 U/L (38-126); Bilirubin,Total 0.4 mg/dl (0.2-1.3); Calcium 9.6 mg/dl (8.4-10.2); Chol/HDL Ratio 3.7 (1-3.5); Cholesterol 198 mg/dl (140-200); Globulin 3.4 g/dL (1.3-3.2); Glucose 165 mg/dl (74-100); HDL Cholesterol 53 mg/dl (40-60); Total Protein,Serum 7.2 g/dl (6.3-8.2); Triglycerides 147 mg/dl (30-150); VLDL Cholesterol 29 mg/dL (0-40)
[2024-03-20 19:05] LABS: Direct LDL Cholesterol 107.67 mg/dL (100-129)
[2024-03-20 19:21] LABS: 25-OH Vitamin D, Total 17.3 ng/mL (30-100)
[2024-03-20 19:23] LABS: Thyroid Stimulating Hormone 1.66 uIU/mL (0.465-4.68)
[2024-03-20 19:26] LABS: Hemoglobin A1C 9.1 % (4.0-6.0)
== END 2024-03-21 23:59 | disposition home or self-care (01) ==
LOC: LAB 10:05
PROVIDERS: PCP Nurse Practitioner Family; Visit Provider Nurse Practitioner Family
DX: E66.01 Morbid (severe) obesity due to excess calories (principal)
CPT/HCPCS: 80050; 80053; 80061; 82306; 83036; 84443; 85025

== ENCOUNTER 2024-03-31 10:57 | Outpatient (CLI) | payer OTHER, SELFPAY ==
--- NOTE | 2024-03-31 11:00 | MM_ITS ---
PROCEDURE INFORMATION: Exam: MG Bilateral Screening 3D Mammography Exam date and time: 03/31/2024 10:46 AM Age: 44 years old Clinical indication: Screening. Paternal grandmother and paternal great aunt had breast cancer. TECHNIQUE: Imaging protocol: Bilateral Screening tomosynthesis and 2D mammography including computer-aided detection (CAD) when performed. COMPARISON: No relevant prior studies available.If prior mammograms are provided, I am happy to add an addendum. FINDINGS: MAMMOGRAPHY: Breast composition: The breasts are almost entirely fatty. Mass: None. Architectural distortion: None. Calcifications: No suspicious calcifications. Asymmetric density: Questionable 1.0 cm focal asymmetry or asymmetrically dense breast tissue in the right upper outer quadrant middle 3rd. Skin thickening: None. Axillary adenopathy: None. IMPRESSION: Patient will be recalled for right diagnostic mammography with spot compression CC and MLO and right sonography further evaluation of questionable asymmetry. ASSESSMENT: BI-RADS Category 0: Incomplete: Need Additional Imaging Evaluation and/or Prior Mammograms for Comparison
== END 2024-03-31 23:59 | disposition home or self-care (01) ==
LOC: RAD 10:58
PROVIDERS: PCP Nurse Practitioner Family; Visit Provider Nurse Practitioner Family
DX: Z12.31 Encounter for screening mammogram for malignant neoplasm of breast (principal)
CPT/HCPCS: 77063; 77067

== ENCOUNTER 2024-04-09 13:39 | Outpatient (CLI) | payer OTHER, SELFPAY ==
--- NOTE | 2024-04-09 13:39 | MM_ITS ---
PROCEDURE INFORMATION: Exam: US Right Breast, Complete MG Right Diagnostic Breast Tomosynthesis Exam date and time: 04/09/2024 1:51 PM Age: 44 years old Clinical indication: Patient recalled on the basis of a screening mammogram for further evaluation; Right breast; asymmetry TECHNIQUE: Imaging protocol: Complete ultrasound of all four quadrants of the right breast and the retroareolar regions, including ultrasound of the axilla when performed. Right Diagnostic tomosynthesis and 2D mammography including computer-aided detection (CAD) when performed. Unilateral or bilateral exam. COMPARISON: MG MM DIG MAMM DX UNILAT RT CAD 04/09/2024 1:25 PM FINDINGS: MAMMOGRAPHY: Breast composition: The breast is almost entirely fatty (based on the most recent screening mammogram report). Breast mammogram findings: Digital diagnostic spot compression views of the right breast and 90 degree lateral view of the right breast demonstrate normal overlapping fibroglandular structures without persistent mass or asymmetry identified. ULTRASOUND: Breast ultrasound findings: Sonographic images of the rise breast including the retroareolar region, all 4 quadrants and the axilla do not demonstrate any solid or cystic masses. No architectural distortion or acoustical shadowing. No skin thickening or axillary adenopathy. IMPRESSION: No mammographic or sonographic evidence of malignancy. Annual bilateral mammographic screening is recommended unless otherwise clinically indicated. ASSESSMENT: BI-RADS Category 1: Negative.
== END 2024-04-09 23:59 | disposition home or self-care (01) ==
LOC: RAD 13:39
PROVIDERS: PCP Nurse Practitioner Family; Visit Provider Nurse Practitioner Family
DX: R92.8 Other abnormal and inconclusive findings on diagnostic imaging of breast (principal)
CPT/HCPCS: 76641; 77061; 77065; G0279